=== PATIENT | female | born 1975 | race Caucasian/White ===

== ENCOUNTER 2017-11-02 22:13 | Observation (INO) ==
--- NOTE | 2017-11-02 22:15 | Emergency Department Note ---
Disposition Clinical Impression: Lumbar radiculopathy, Lumbar back pain Disposition: Admitted As Inpatient Condition: Good General Adult HPI - General Chief complaint: ED Back Pain/Injury Stated complaint: back pain - Related Data Home Medications Medication Instructions Recorded Confirmed No Known Home Drugs 11/03/17 11/03/17 Allergies Allergy/AdvReac Type Severity Reaction Status Date / Time Penicillins Allergy Difficulty Verified 11/02/17 22:14 Breathing Course Vital Signs Temperature 98.2 F 11/02/17 22:19 Pulse Rate 86 11/02/17 22:19 Respiratory Rate 14 11/02/17 22:19 Blood Pressure 133/86 11/02/17 22:19 O2 Sat by Pulse Oximetry 99 11/02/17 22:19 Temperature 98.1 F 11/03/17 02:44 Pulse Rate 59 11/03/17 02:44 Respiratory Rate 18 11/03/17 02:44 Blood Pressure 106/71 11/03/17 02:44 O2 Sat by Pulse Oximetry 94 11/03/17 02:44 Oxygen Delivery Oxygen Delivery Room Air Attestation Statement - Attestation Attestation: I examined this patient and my medical decision-making was reviewed with the Resident Physician. I agree with the documented findings, disposition and treatment plan as described except to the extent set forth below. [id number] time provided Patient arrives from home by EMS. She experienced the sudden onset of back pain while she was carrying wood. She had witnessed syncopal event. She presents lying supine complaining of back pain. She has a previous history of back pain including microdiscectomy 01:00: Upon completion of the MRI of the test results were discussed with the patient by the resident physician. Her pain persists including her ability to walk. She requests transfer to a facility under the care of her former orthospine group. Call was placed to the [facility] orthospine physician who declined transfer saying the patient does not meet criteria for transfer. We will provide her with options to go home with analgesics are to be admitted for pain control here.
[2017-11-02] MEDS ORDERED: Ketorolac 15 MG/ML VIAL IVP ONE (22:21)
[2017-11-02] MEDS ORDERED: *HR* FentaNYL (PF) 100 MCG/2 ML VIAL IVP ONE (22:21)
--- NOTE | 2017-11-02 22:32 | Emergency Department Note ---
Disposition Clinical Impression: Lumbar radiculopathy, Lumbar back pain Disposition: Admitted As Inpatient Condition: Good Time of Disposition: 01:41 General Adult HPI - General Chief complaint: ED Back Pain/Injury Stated complaint: back pain Time Seen by Provider: 11/02/17 22:15 Source: patient, family, EMS Mode of arrival: EMS Limitations: physical limitation Nursing Notes Reviewed: Yes Vital Signs Reviewed: Yes - History of Present Illness HPI Narrative: This is a 42-year-old female presents emergency department for back pain. She states that a proximal 4 hours prior to arrival she was moving wood and felt pain in her back. She states that she was unable to stand up and started the past of the pain and her son held her up and then was able to lay her on the ground and they called EMS. Patient states that she has had previous back issues with previous back surgeries. She states that she felt a pop in her back when this happened she says she is now having pain down her right leg. Patient denies any loss of bowel or bladder control. Pain Scale: 7 - Related Data Allergies Allergy/AdvReac Type Severity Reaction Status Date / Time Penicillins Allergy Difficulty Verified 11/02/17 22:14 Breathing All systems ED: reviewed and negative except as stated. Gastrointestinal: Reports: other (Denies loss of bowel control) Genitourinary: Reports: other (Denies loss of bladder control) Musculoskeletal: Reports: back pain, other (Pain down her right leg) Past Medical History - Past Medical History Medical history: Reports: other Psychiatric history: Reports: no psych history - Social History Smoking Status: Never smoker Smokeless Tobacco Status: No Alcohol use: Reports: none Drug use: Reports: none Physical Exam - General Limitations: no limitations General appearance: alert, in no apparent distress - Head Head exam: atraumatic, normocephalic - Eye Eye exam: Present: normal appearance, EOMI - Neck Neck exam: Present: normal inspection, full ROM, trachea midline - Respiratory Respiratory exam: Present: normal lung sounds bilaterally. Absent: respiratory distress, wheezes - Cardiovascular Cardiovascular exam: Present: regular rate, normal rhythm, normal heart sounds, +S1 - Abdominal Exam Abdominal exam: Present: soft, Non-Tender, normal bowel sounds - Back Exam Back exam: Present: normal inspection, tenderness (Patient has tenderness to the midline lumbar spine) - Neurological Exam Neurological exam: Present: alert, oriented X3, other (Patient had normal sensation to the lower extremities. Patient was able to flex and extend her feet. Patient was noncompliant with moving her legs due to pain.). Absent: motor sensory deficit - Expanded Neurological Exam Sensory exam lower extremity: light touch: Normal Coma Scale Eye Opening: Spontaneous Coma Scale Motor Response: Obeys Commands Coma Scale Verbal Response: Oriented Coma Scale Total: 15 - Psychiatric Psychiatric exam: Present: normal affect, normal mood - Skin Skin exam: Present: warm, dry, intact Course Vital Signs Temperature 98.2 F 11/02/17 22:19 Pulse Rate 86 11/02/17 22:19 Respiratory Rate 14 11/02/17 22:19 Blood Pressure 133/86 11/02/17 22:19 O2 Sat by Pulse Oximetry 99 11/02/17 22:19 Temperature 98.2 F 11/02/17 22:19 Pulse Rate 69 11/03/17 02:07 Respiratory Rate 16 11/03/17 02:07 Blood Pressure 121/75 11/03/17 02:07 O2 Sat by Pulse Oximetry 97 11/03/17 02:07 Oxygen Delivery Oxygen Delivery Room Air Medical Decision Making - MDM Narrative Medical decision making narrative: Due the patient having back pain with previous back surgeries we will obtain an MRI of this patient. There showed disc herniations at L4-L5 and L2-L3 with moderate narrowing of the thecal sac. I called and spoke with a ortho neurosurgeon in [place] attending of Dr. Leonard due to the patient having previously having had surgeries done by a surgeon within his group. He stated that he did not feel that this patient required transfer to their facility. Due to the patient having intractable pain and states that she is unable to walk due to the pain we will need to admit the patient to the hospital here for further pain management. Due to the patient not being able to ambulate the patient has requested that a Chaudhry catheter be placed. I called and spoke with the hospitalist and they have accepted the patient to their service. The patient will be admitted to the hospital at this time. - Radiology Data Radiology results reviewed: Yes I reviewed the patient's radiology results. Lumbar Spine MRI 11/02/17 22:22 IMPRESSION: Degenerative canal and neural foraminal stenosis as detailed above. D/ / Hi Kapadia MD / Hi Kapadia MD Interpreting Provider: Hi Kapadia MD
[2017-11-03] MEDS ORDERED: *HR* FentaNYL (PF) 100 MCG/2 ML VIAL IVP ONE (00:02)
[2017-11-03] MEDS ORDERED: methylPREDNISolone 125 MG/2 ML VIAL IVP ONE (01:14)
[2017-11-03] MEDS ORDERED: Acetaminophen 325 MG TABLET PO PRN (02:20)
[2017-11-03] MEDS ORDERED: Ketorolac 30 MG/ML VIAL IVP PRN (02:20)
[2017-11-03] MEDS ORDERED: Naloxone 0.4 MG/ML INJ IVP PRN (02:20)
[2017-11-03] MEDS ORDERED: *HR* OxyCODONE Immed Rel 5 MG TABLET PO PRN (02:20)
--- NOTE | 2017-11-03 02:20 | Internal Med History&Physical ---
Date of Encounter: 11/03/17 Time of Encounter: 02:20 Assessment and Plan (1) Lumbar back pain Current visit: Yes Status: Acute Acute severe low back pain. With disc bulge at L2-L3 level present on MRI. Pain control. Bedrest. Consult spine surgery in the morning for recommendations. Patient at high risk for complications due to use of intravenous narcotic medications. Will also place patient on systemic steroids. Internal Medicine - H&P: HPI Chief complaint: Acute back pain Admitted From: Emergency Dept History of present illness: Ms. Shah is a 42 year old female patient with a history of prior lumbar disc herniation and prior lumbar spine surgeries presented to the ER with complaints of acute onset low back pain. Pain began while the patient was lifting a fire log while in a squatting position. She felt a pop in her lower back and began to have severe pain in her back and both lower extremities and was unable to ambulate after that due to pain. She was therefore brought to the ER. In the ER she underwent MRI of the lumbar spine which showed disc bulge at L2-L3 levels with impingement of the thecal sac. Patient denies focal weakness in her lower extremities or numbness but she does get some tingling in her feet. Denies any bowel or bladder incontinence. She reports prior episode of disc herniation which was treated with systemic and epidural steroids, gabapentin and pain medications with no improvement in his symptoms still she underwent surgery for it. She was pain free post surgery. Past Med Surg Social Fam HX - Past Medical History Attestation: Yes The following information was validated with the patient. Source: patient Medical history: other (Degenerative disc disease) Psychiatric history: no psych history - Social History Smoking Status: Never smoker Smokeless Tobacco Status: No Alcohol use: none Drug use: none - Family History Mother Living Status: Still Living Hx Family Cardiac Disorders: Yes (grandfather and mother long QT) Hx Family Respiratory Disorders: No Hx Family Cancer: Yes (grandmother breast cancer) Hx Family GI Disorders: No Hx Family Genitourinary Disorders: No Hx Family Endocrine Disorder: Yes (mother thyroid and dm) Hx Family Musculoskeletal Disorders: No Hx Family Neuromuscular Disorders: No Hx Family Neurologic Disorders: No Hx Family HEENT Disorders: No Hx Family Autoimmune Disorders: Yes (sister RA) Hx Family Reproductive Disorders: No Hx Family Psychosocial Disorders: No Internal Medicine - H&P: Meds No Known Home Drugs 11/03/17 [History] 3 Allergy/AdvReac Type Severity Reaction Status Date / Time Penicillins Allergy Difficulty Verified 11/02/17 22:14 Breathing All Systems PM: A 10-system review of systems was performed and is negative for pertinent findings except as documented above in the HPI. - Constitutional Constitutional: no chills, no fever(s), no night sweats - EENT Eyes: no change in vision, no discharge, no pain, no photophobia Ears: no ear discharge, no ear pain, no tinnitus Nose, mouth and throat: no dysphagia, no nasal discharge, no neck pain, no sore throat - Cardiovascular Cardiovascular ROS IM: no chest pain, no diaphoresis, no dyspnea, no lightheadedness, no palpitations, no syncope - Respiratory Respiratory: no cough, no dyspnea, no wheezing, no excessive phlegm production - Gastrointestinal Gastrointestinal: no abdominal pain, no diarrhea, no hematemesis, no hematochezia, no melena, no nausea, no vomiting - Genitourinary Genitourinary: no change in urinary stream, no dysuria, no flank pain, no hematuria - Musculoskeletal Musculoskeletal ROS IM: back pain, no numbness, no tingling - Integumentary Integumentary IM: no rash, no unusual bruising - Neurological Neurological ROS: radicular pain, no confusion, no convulsions, no focal weakness, no numbness, no tingling, no tremor(s) - Constitutional Vitals: Temp Pulse Resp BP Pulse Ox 98.2 F 69 16 121/75 97 11/02/17 22:19 11/03/17 02:07 11/03/17 02:07 11/03/17 02:07 11/03/17 02:07 General appearance: Present: cooperative, A&O X 3, answers questions appropriately Exam: Moderate distress - Respiratory Respiratory exam: Present: CTAB. Absent: accessory muscle use, rales, rhonchi, wheezes - Cardiovascular Cardiovascular exam: Present: RRR, +S1, +S2. Absent: diastolic murmur, gallop, rubs, systolic murmur - GI/Abdominal GI/Abdominal exam: Present: normal bowel sounds, soft, no peritoneal signs. Absent: distended, tenderness - Extremities Exam Extremities exam: Present: full ROM (Decreased range of motion in both lower extremities due to severe back pain), warm, radial pulses palpable and symmetrical. Absent: calf tenderness, pedal edema - Back Exam Additional comments: Unable to perform straight leg test due to severe pain in her back. - Neurological Exam Neurological exam: Present: alert, oriented X3, no focal deficits. Absent: facial droop, speech deficit - Skin Skin exam: Present: dry, intact Internal Med - H&P Results - Impressions Lumbar spine MRI L2-L3: Diffuse disc bulge with a superimposed broad-based 4.5 mm in AP diameter central disc protrusion extending for a length of approximately 5 mm behind the L2 vertebral body and resulting in moderate narrowing of the thecal sac.
[2017-11-03] MEDS ORDERED: *HR* FentaNYL (PF) 100 MCG/2 ML VIAL IVP PRN ×2 (02:21→08:06)
[2017-11-03 08:25] LABS: Basophils % 0.1 %; Eosinophils % 0.1 %; Hemoglobin 13.9 g/dL (11.5-15.4); Immature Granulocytes % 0.6 % (0-4); Lymphocytes # 0.5 K/mcL (0.6-4.6); Lymphocytes % 3.8 %; Mean Corpuscular HGB Conc 32.3 g/dL (31.6-35.5); Mean Corpuscular Hemoglobin 30.2 pg (28.0-33.3); Mean Corpuscular Volume 93.3 fL (83.0-100.0); Mean Platelet Volume 9.9 fL (9.4-12.4); Monocytes # 0.1 K/mcL (0.0-1.3); Monocytes % 0.6 %; Neutrophils # 12.4 K/mcL (1.6-8.9); Platelet Count 243 K/mcL (140-400); Prothrombin Time 11.1 Seconds (9.4-12.1); Red Blood Count 4.61 M/mcL (3.82-4.97); Red Cell Distribution Width 12.7 % (11.5-14.5); Segmented Neutrophils % 94.8 %
[2017-11-03 08:53] LABS: Blood Urea Nitrogen 16 mg/dL (6-20); Calcium 9.1 mg/dL (8.6-10.3); Carbon Dioxide 23 mEq/L (23-29); Chloride 109 mEq/L (98-107); Glucose 150 mg/dL (70-105); Osmolality,Calculated 290 (280-300); Potassium 3.9 mEq/L (3.5-5.1); Sodium 138 mEq/L (136-145)
[2017-11-03] MEDS ORDERED: predniSONE 20 MG TABLET PO SCH (09:00)
[2017-11-03 09:36] LABS: BUN/Creatinine Ratio 21 (6-26); eGFR For African Americans > 60 (> 60); eGFR For Non-African Americans > 60 (> 60)
--- NOTE | 2017-11-03 11:07 | Discharge Summary ---
Date of Encounter: 11/03/17 Time of Encounter: 09:00 - Discharge Diagnosis (1) Lumbar radiculopathy Priority: Primary Status: Acute (2) Spinal stenosis Priority: Primary Status: Acute Qualifiers: Qualified Code(s): M48.061 - Spinal stenosis, lumbar region without neurogenic claudication (3) Lumbar back pain Priority: Primary Status: Acute - Discharge Medications Home Medications: OxyCODONE Immed Rel [Roxicodone 5 MG] 5 mg PO Q6HR PRN tablet 11/03/17 [Rx] predniSONE [PredniSONE] 60 mg PO DAILY tablet 11/03/17 [Rx] Allergies/Adverse Reactions: 3 Allergy/AdvReac Type Severity Reaction Status Date / Time Penicillins Allergy Difficulty Verified 11/02/17 22:14 Breathing Date of admission: 11/03/17 02:02 Primary care physician: Evert Moulton MD Consults: 11/03/17 02:21 Consult to Occupational Therapy [CONS] Routine Comment: Evaluate, develop and implement POC Reason for Consult: Acute low back pain Consult to Physical Therapy [CONS] Routine Comment: Evaluate, develop and implement POC Reason for Consult: Acute low back pain 11/03/17 08:13 Consult to Orthopedic Surgery [CONS] Routine Consulting Provider: John Fuller Jr Reason for Consult: severe back pain with lumber L2-L3 disc protrusion Call Completed: Yes - Patient Status Disposition: Transfer Other Condition: Fair - Discharge Instructions Follow Up With: Evert Moulton MD [Primary Care Provider] - Hospital course: Ms. Shah is a 42 year old female patient with a history of prior lumbar disc herniation and prior lumbar spine surgeries presented to the ER with complaints of acute onset low back pain. Pain began while the patient was lifting a fire log while in a squatting position. She felt a pop in her lower back and began to have severe pain in her back and both lower extremities and was unable to ambulate after that due to pain. She was therefore brought to the ER. In the ER she underwent MRI of the lumbar spine which showed disc bulge at L2-L3 levels with impingement of the thecal sac. Patient denies focal weakness in her lower extremities or numbness but she does get some tingling in her feet. Denies any bowel or bladder incontinence. Pt was admitted in the hospital and continued symptomatic and supportive care. She did mention she had 2 lumbar spine surgeries done in the past at [facility] through [facility]. She is still in severe pain, unable to ambulate or stand on her feet. Denied any focal weakness. It seems like she does need surgical intervention, since she has last 2 surgeries done at by [facility] surgery, it is reasonable to go back there. Pt also wanted to go there. I did talked to Dr. Mendez from [facility] surgery team who suggested to transfer the pt to [facility]. Talked to a hospitalist Dr. Russell, at [facility], who gracefully accepted the pt for further care. So will transfer her there for further higher level of care. - Time Spent with Patient Total time spent providing and/or coordinating discharge services: - Constitutional Vitals: Temp Pulse Resp BP Pulse Ox 97.8 F 73 16 100/61 97 11/03/17 07:16 11/03/17 07:16 11/03/17 07:16 11/03/17 07:16 11/03/17 07:16 General appearance: Present: cooperative, A&O X 3, answers questions appropriately - Head Head exam: Present: atraumatic, normal inspection - Neck Neck exam general surgery: Present: supple - Respiratory Respiratory exam: Present: CTAB. Absent: accessory muscle use, rales, rhonchi, wheezes - Cardiovascular Cardiovascular exam: Present: RRR, +S1, +S2. Absent: diastolic murmur, gallop, rubs, systolic murmur - GI/Abdominal GI/Abdominal exam: Present: soft. Absent: rebound, rigid, tenderness - Extremities Exam Extremities exam: Absent: calf tenderness, pedal edema, tenderness - Neurological Exam Neurological exam: Present: alert, oriented X3, no focal deficits, strengths equal and symetr throughout
[2017-11-03 15:51] VITALS: BP 121/73
== END 2017-11-03 17:09 | disposition home or self-care (01) ==
LOC: 3NENU 22:13 → EMEROO 22:13 → 3NENU 11-03 02:32 → 1NENUPED 11-03 10:40
PROVIDERS: ADMIT Internal Medicine; ATTEND Internal Medicine